=== PATIENT | male | born 1935 | race Caucasian/White ===

== ENCOUNTER 2022-11-05 11:51 | Emergency (ER) | payer BC, MEDICARE ==
[2022-11-05] MEDS ORDERED: Bacitracin Oint 1 GM U/D Packet TOP ONE (13:02)
[2022-11-05] MEDS ORDERED: Lidocaine 1% 5 ML VIAL INJECT ONE (13:02)
== END 2022-11-05 13:52 | disposition home or self-care (01) ==
LOC: JP.ED 11:51
DX: S61.512A Laceration without foreign body of left wrist, initial encounter (principal); Z88.0 Allergy status to penicillin; W26.0XXA Contact with knife, initial encounter
CPT/HCPCS: 12032; 99282